=== PATIENT | male | born 1965 | race Caucasian/White ===

== ENCOUNTER 2023-02-21 23:52 | Emergency (ER) | payer SELFPAY ==
[~2023-02-21] VITALS: Ht 170.2 cm; Wt 87.0 kg
[2023-02-22 00:12] VITALS: BP 106/78; PULSE 72; RESP 18; TEMP 97.9; O2SAT 96
== END 2023-02-22 00:24 | disposition left against medical advice (07) ==
LOC: ER 23:52
DX: R51.9 Headache, unspecified (principal)
CPT/HCPCS: 99283